=== PATIENT | male | born 1960 | race Caucasian/White ===

== ENCOUNTER 2017-08-07 18:18 | Emergency (ER) | payer MEDICAID ==
[~2017-08-07] VITALS: Ht 180.3 cm; Wt 90.0 kg
[2017-08-07] MEDS ORDERED: [UNRECOGNIZED DRUG - CODE] PEG (18:23)
[2017-08-07] MEDS ORDERED: PERTUSS(ACELL),DIPH,TET VAC/PF 0.5 ML VIAL IM ONE (20:00)
[2017-08-07] MEDS ORDERED: LIDOCAINE HCL 1% 10 ML VIAL INJ ONE (20:00)
[2017-08-07 21:13] VITALS: BP 118/77
== END 2017-08-07 21:57 | disposition home or self-care (01) ==
LOC: EMS 18:21
DX: S61.216A Laceration without foreign body of right little finger without damage to nail, initial encounter (principal); W31.89XA Contact with other specified machinery, initial encounter; Y93.89 Activity, other specified; Y92.89 Other specified places as the place of occurrence of the external cause; Y99.8 Other external cause status
CPT/HCPCS: 12001; 73140; 90471; 90715; 99284; J3490